=== PATIENT | female | born 1945 | race Caucasian/White ===

== ENCOUNTER 2020-02-10 12:59 | Outpatient (CLI) | payer MEDICARE ==
[~2020-02-10] VITALS: Ht 165.1 cm; Wt 105.7 kg
[2020-02-10 13:38] VITALS: BP 136/58
[2020-02-10] MEDS ORDERED: CYMBALTA60 MG ORAL (15:08)
[2020-02-10] MEDS ORDERED: CHLORTHALIDONE25 MG ORAL (15:08)
[2020-02-10] MEDS ORDERED: CARVEDILOL25 MG ORAL (15:08)
[2020-02-10] MEDS ORDERED: CRESTOR20 MG ORAL (15:08)
[2020-02-10] MEDS ORDERED: LIALDA1.2 GM ORAL (15:08)
[2020-02-10] MEDS ORDERED: PREMARIN0.45 MG ORAL (15:08)
[2020-02-10] MEDS ORDERED: OMEPRAZOLE40 M1 ORAL (15:08)
[2020-02-10] MEDS ORDERED: CANAASA1000 MG RECTAL (15:08)
[2020-02-10] MEDS ORDERED: MIRTAZAPINE45 MG ORAL (15:08)
[2020-02-10] MEDS ORDERED: VITAMIN D325 MC1 PO (15:08)
--- NOTE | 2020-02-10 18:00 | Consultation ---
DATE OF CONSULTATION: 02/10/2020 CHIEF COMPLAINT: Colitis. The patient is a 74-year-old female with a history of colitis for many years, currently on Canasa and mesalamine, is here for a followup. PAST MEDICAL HISTORY: 1. Anemia. 2. Cataract. 3. Chronic kidney disease. 4. Ulcerative colitis. 5. Depression. 6. Hypertension. 7. Atrial fibrillation. 8. GERD. 9. Gallstones. 10. Osteoporosis. PAST SURGICAL HISTORY: Hysterectomy, tonsillectomy. MEDICATIONS: See medication reconciliation list. FAMILY HISTORY: Noncontributory. SOCIAL HISTORY: The patient denies any tobacco, alcohol, or drug abuse. ALLERGIES: Sulfa, erythromycin, amlodipine, prochlorpemazine, doxycycline. REVIEW OF SYSTEMS: Positive for abdominal pain, diarrhea, rectal bleeding. PHYSICAL EXAMINATION: VITAL SIGNS: Temperature 96.8, blood pressure 136/58, pulse 68, respirations 20. HEENT: Normocephalic, atraumatic. Sclerae anicteric. NECK: Supple. No evidence of obvious lymphadenopathy. CARDIOVASCULAR: Regular rate and rhythm. Plus S1 and S2. LUNGS: Clear to auscultation bilaterally. ABDOMEN: Positive bowel sounds. Soft and nontender. No rebound. No guarding. No peritoneal sign. EXTREMITIES: No cyanosis, clubbing, edema. ASSESSMENT AND PLAN: This is a 74-year-old female with ulcerative colitis. Our plan will be to schedule for colonoscopy. Meanwhile, we are going to treat the patient with mesalamine 800 mg 2 tablets 3 times a day plus Canasa suppository. The patient is to come back after colonoscopy for further management. Eduardo Simental M.D. DR: JOSE LUIS JOB#: [id number] CC:
== END 2020-02-10 14:59 | disposition home or self-care (01) ==
LOC: PAN 12:59
DX: R10.9 Unspecified abdominal pain (principal); R19.7 Diarrhea, unspecified; K62.5 Hemorrhage of anus and rectum; Z88.2 Allergy status to sulfonamides; Z88.8 Allergy status to other drugs, medicaments and biological substances; Z90.710 Acquired absence of both cervix and uterus; K51.90 Ulcerative colitis, unspecified, without complications; I12.9 Hypertensive chronic kidney disease with stage 1 through stage 4 chronic kidney disease, or unspecified chronic kidney disease; N18.9 Chronic kidney disease, unspecified; F32.9 Major depressive disorder, single episode, unspecified; K21.9 Gastro-esophageal reflux disease without esophagitis; M81.0 Age-related osteoporosis without current pathological fracture; Z79.899 Other long term (current) drug therapy
CPT/HCPCS: G0463